=== PATIENT | male | born 1990 | race Asian ===

== ENCOUNTER 2017-10-31 03:48 | Emergency (ER) | payer SELFPAY ==
[~2017-10-31] VITALS: Ht 195.6 cm; Wt 72.7 kg
[2017-10-31 08:50] VITALS: BP 121/84
[2017-10-31] MEDS ORDERED: PROZ10 PO (12:23)
[2017-10-31] MEDS ORDERED: TRAZ-144 PO (12:23)
[2017-11-03] MEDS ORDERED: MULT-1239 PO (09:57)
== END 2017-10-31 09:11 | disposition home or self-care (01) ==
LOC: EMS 03:49
DX: T51.91XA Toxic effect of unspecified alcohol, accidental (unintentional), initial encounter (principal); R41.82 Altered mental status, unspecified; F17.210 Nicotine dependence, cigarettes, uncomplicated
CPT/HCPCS: 99283; 99406